=== PATIENT | male | born 1965 | race Caucasian/White ===

== ENCOUNTER 2016-08-20 18:26 | Emergency (ER) | payer OTHER ==
--- NOTE | ~2016-08-20 | ER ---
PATIENT'S NAME: CECILIA [facility]ON [facility] AGE: 51 Y [address] ROOM: [place] [id number] LOCATION: [facility] ADMIT DATE: 08/20/2016 ER/Outpatient Report DISCHARGE DATE: 08/20/2016 FAMILY PHYSICIAN: Shahbaz Phoenix MD ATTENDING PHYSICIAN: Abdi Morales Time of Arrival: 1829 hours. Time of Evaluation: 1838 hours. CHIEF COMPLAINT: Sores on his arms with itching. HISTORY OF PRESENT ILLNESS: The patient states he was working yesterday with some new [employer] material and he is concerned that he might be allergic to it. He has tried using some relief cream this morning. He bathe with witch nikky and alcohol just prior to arrival. He continues to have blisters on his arms that are itching and he has itched them quite a bit. He also noticed blisters on his knees and he states when he was grounding he was on his hands and knees doing it. No one else at home has any kind of rash and he has not ran a fever. He has had no other symptoms. Denies feeling short of breath, has not had any congestion of his throat. ALLERGIES: ON HIS CHART AND REVIEWED BY ME. CURRENT MEDICATIONS: On his chart and reviewed by me. PAST MEDICAL HISTORY: CVA, back pain, asthma, heart disease, hypertension, GERD. PAST SURGICAL HISTORY: Back fusion, right biceps repair, bilateral shoulders. SOCIAL HISTORY: Smokes a pack per day. Denies use of drugs and alcohol. REVIEW OF SYSTEMS: All negative other than those mentioned in the HPI. PHYSICAL EXAMINATION: VITAL SIGNS: He weighed 77.3 kg, blood pressure was 140/69, pulse of 89, respirations 18, temperature of 98.4, O2 saturation was 96% on room air. GENERAL: He is awake, alert, and oriented x4. PATIENT'S NAME: CECILIA DURON [facility] AGE: 51 Y [address] ROOM: [place] [address] LOCATION: [facility] ADMIT DATE: 08/20/2016 ER/Outpatient Report DISCHARGE DATE: 08/20/2016 FAMILY PHYSICIAN: Shabhaz Phoenix MD ATTENDING PHYSICIAN: Abdi Morales SKIN: [employer], warm, and dry. RESPIRATIONS: Even and nonlabored. Oropharynx is clear. NECK: Supple. No lymphadenopathy. LUNGS: Lung sounds are clear throughout. HEART: Regular rate and rhythm. EXTREMITIES: The patient does have small red rash with blistering of his anterior forearms bilaterally, does have some blistering into his hands, has blisters on his knees anteriorly bilaterally but no where else is noted. He does have couple areas that he has scratched and has had some bleeding from those sites. EMERGENCY ROOM COURSE: The patient was given Solu-Medrol 125 mg IM. IMPRESSION: Allergic reaction. PLAN: Home, rest. Prescription was written for doxycycline to take b.i.d. x10 days and encouraged to get some Benadryl from the pharmacy to take for the itching and discomfort. If he continues to have problems, he needs to follow up with his primary provider in the next 2 to 3 days or return to the ER. He verbalized understanding. YOUSIF VERA APRN FOR MD CELIA SAM/rodrigo /[id number] d: 08/20/162210 t: 08/22/161810, OUTPATIENT REPORT
== END 2016-08-20 19:02 | disposition disaster alternative care site (69) ==
LOC: GMED 18:26
DX: T78.40XA Allergy, unspecified, initial encounter (principal); F17.210 Nicotine dependence, cigarettes, uncomplicated; I11.9 Hypertensive heart disease without heart failure; I51.9 Heart disease, unspecified; I63.9 Cerebral infarction, unspecified; K21.9 Gastro-esophageal reflux disease without esophagitis; J45.909 Unspecified asthma, uncomplicated; Z98.890 Other specified postprocedural states; Z79.82 Long term (current) use of aspirin; Z88.5 Allergy status to narcotic agent; Z88.1 Allergy status to other antibiotic agents; Z79.899 Other long term (current) drug therapy
CPT/HCPCS: J2930